=== PATIENT | female | born 1965 ===

== ENCOUNTER 2018-04-25 01:47 | Emergency (ER) | payer MEDICAID ==
[2018-04-25 02:12] VITALS: BP 117/83; PULSE 84; RESP 17; TEMP 98.6; O2SAT 96
--- NOTE | 2018-04-25 03:25 | ED PDOC ---
HPI: Abdomen Time Seen by Provider: 04/25/18 02:34 Chief Complaint (Nursing): GI Problem Chief Complaint (Provider): GI Problem History Per: Patient History/Exam Limitations: no limitations Onset/Duration Of Symptoms: Days (x1) Current Symptoms Are (Timing): Still Present Additional Complaint(s): 52 y/o female with no significant pmhx, who presents to the ED for evaluation of vomiting and diarrhea x1 day. Patient reports 1 episode of non- bilious, non-bloody vomiting, and 5 episodes of loose, watery, non-bloody diarrhea. Denies fever, cough, shortness of breath, and chest pain. Patient also reports that she and her coworker ate something and they both developed the same symptoms. PMD: [facility] Past Medical History Reviewed: Historical Data, Nursing Documentation, Vital Signs Vital Signs: Last Vital Signs Temp 98.6 F 04/25/18 02:01 Pulse 84 04/25/18 02:01 Resp 17 04/25/18 02:01 BP 117/83 04/25/18 02:01 Pulse Ox 96 04/25/18 03:37 - Medical History PMH: No Chronic Diseases - Surgical History Surgical History: No Surg Hx - Family History Family History: States: Unknown Family Hx - Social History Current smoker - smoking cessation education provided: No Alcohol: None Drugs: Denies - Immunization History Hx Tetanus Toxoid Vaccination: No Hx Influenza Vaccination: No Hx Pneumococcal Vaccination: No - Home Medications Home Medications: Ambulatory Orders Medication Instructions Recorded Ibuprofen [Motrin] 600 mg PO TID #12 tab 05/18/14 Prednisone 1 tab PO DAILY #4 tab 05/18/14 Dicyclomine [Bentyl] 20 mg PO Q12 PRN #20 tab 04/25/18 Ondansetron ODT [Zofran ODT] 4 mg PO Q6 PRN #8 odt 04/25/18 - Allergies Allergies/Adverse Reactions: Allergies Allergy/AdvReac Type Severity Reaction Status Date / Time No Known Allergies Allergy Verified 05/18/14 18:21 Review of Systems Constitutional: Negative for: Fever Cardiovascular: Negative for: Chest Pain Respiratory: Negative for: Cough, Shortness of Breath Gastrointestinal: Positive for: Vomiting, Diarrhea. Negative for: Hematochezia , Hematemesis Physical Exam - Reviewed Nursing Documentation Reviewed: Yes Vital Signs Reviewed: Yes - Physical Exam Appears: Positive for: Non-toxic, No Acute Distress Head Exam: Positive for: ATRAUMATIC, NORMAL INSPECTION, NORMOCEPHALIC Skin: Positive for: Normal Color, Warm, Dry. Negative for: Rash Eye Exam: Positive for: EOMI, Normal appearance, PERRL Neck: Positive for: Normal, Painless ROM, Supple Cardiovascular/Chest: Positive for: Regular Rate, Rhythm. Negative for: Murmur Respiratory: Positive for: Normal Breath Sounds. Negative for: Respiratory Distress Gastrointestinal/Abdominal: Positive for: Normal Exam, Soft. Negative for: Tenderness Back: Positive for: Normal Inspection. Negative for: L CVA Tenderness, R CVA Tenderness, Vertebral Tenderness Extremity: Positive for: Normal ROM. Negative for: Pedal Edema, Deformity Neurologic/Psych: Positive for: Alert, Oriented. Negative for: Motor/Sensory Deficits - ECG O2 Sat by Pulse Oximetry: 96 (RA) Pulse Ox Interpretation: Normal Medical Decision Making Medical Decision Making: Initial Impression: 52 y/o female with acute gastroenteritis Initial Plan: --Bentyl 20mg PO --Zofran 4mg PO --Reevaluation 4AM pt reports marked improvement in symptoms and is stable upon discharge DX AGE RX Bentyl/zofran Scribe Attestation: Documented by Tae Espinosa, acting as a scribe for Pranav Aviles MD. Provider Scribe Attestation: All medical record entries made by the Scribe were at my direction and personally dictated by me. I have reviewed the chart and agree that the record accurately reflects my personal performance of the history, physical exam, medical decision making, and the department course for this patient. I have also personally directed, reviewed, and agree with the discharge instructions and disposition. Disposition - Clinical Impression Clinical Impression: Gastroenteritis - Disposition Disposition: Routine/Home Disposition Time: 04:00 Condition: STABLE Prescriptions: Dicyclomine [Bentyl] 20 mg PO Q12 PRN #20 tab PRN Reason: abdominal pain/diarrhea Ondansetron ODT [Zofran ODT] 4 mg PO Q6 PRN #8 odt PRN Reason: Nausea/Vomiting Instructions: Viral Gastroenteritis Forms: [facility] (Divehi), [facility] ED School/Work Excuse
== END 2018-04-25 04:55 | disposition home or self-care (01) ==
LOC: H.ER 01:47
DX: K52.9 Noninfective gastroenteritis and colitis, unspecified (principal)

== ENCOUNTER 2018-06-01 01:58 | Emergency (ER) | payer MEDICAID ==
[2018-06-01 02:12] VITALS: BP 128/87; PULSE 84; RESP 18; O2SAT 98
[2018-06-01 03:09] LABS: BASO % 0.5 % (0.0-2.0); EOS # 0.1 K/uL (0.0-0.7); EOS % 1.1 % (0.0-4.0); HEMOGLOBIN 13.4 g/dL (12.0-16.0); LYMPH # 0.9 K/uL (1.0-4.3); LYMPH % 8.7 % (20.0-40.0); MEAN CELL VOLUME 91.4 fl (81.0-99.0); MEAN CORPUSCULAR HEMOGLOBIN 31.5 pg (27.0-31.0); MEAN CORPUSCULAR HGB CONC 34.4 g/dL (33.0-37.0); MONO # 0.2 K/uL (0.0-0.8); MONO % 1.8 % (0.0-10.0); NEUT # 8.9 K/uL (1.8-7.0); NEUT % 87.9 % (50.0-75.0); PLATELET COUNT 304 K/uL (130-400); RBC 4.25 Mil/uL (3.80-5.20); WHITE BLOOD COUNT 10.1 K/uL (4.8-10.8)
[2018-06-01 04:07] LABS: BLOOD UREA NITROGEN 10 mg/dl (7-17); GFR AFRICAN-AMERICAN > 60; GFR NON-AFRICAN AMERICAN > 60
[2018-06-01 04:08] LABS: CALCIUM 9.2 mg/dL (8.4-10.2)
[2018-06-01 04:09] LABS: ALB/GLOB RATIO 1.2 (1.0-2.1); ALT/SGPT 20 U/L (9-52); AST/SGOT 22 U/L (14-36)
--- NOTE | 2018-06-01 04:35 | ED PDOC ---
HPI: Skin/Bite Injury Time Seen by Provider: 06/01/18 02:19 Chief Complaint (Nursing): Abnormal Skin Integrity History Per: Patient Additional Complaint(s): 52 yo F c/o 1 month h/o itchiness to her entire body. Patient reports being seen in this ED prior and at [facility] for similar symptoms, however in the initial visit, patient states that she had a rash. Both visits she was rx prednisone, which she completed. 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 Otherwise patient reports (-) throat swelling, (-) tongue / lip swelling, (-) dyspnea, (-) cough, (-) wheezing, (-) abdominal pain, (-) nausea (-) vomiting. There has been no exposure to known allergens. Reports no new medications, new food or changes in soaps and lotions. Past Medical History Vital Signs: Last Vital Signs Temp 98 F 06/01/18 02:08 Pulse 84 06/01/18 02:08 Resp 18 06/01/18 02:08 BP 128/87 06/01/18 02:08 Pulse Ox 98 06/01/18 04:40 - Family History Family History: States: Unknown Family Hx - Immunization History Hx Tetanus Toxoid Vaccination: No Hx Influenza Vaccination: No Hx Pneumococcal Vaccination: No - Home Medications Home Medications: Ambulatory Orders Medication Instructions Recorded Nitrofurantoin Macrocrystals 1 cap PO BID #14 cap 05/19/18 [Macrobid] Prednisone [Deltasone] 20 mg PO DAILY #5 tablet 05/26/18 Cetirizine HCl [Zyrtec] 10 mg PO DAILY #30 capsule 06/01/18 - Allergies Allergies/Adverse Reactions: Allergies Allergy/AdvReac Type Severity Reaction Status Date / Time No Known Allergies Allergy Verified 06/01/18 02:12 Review of Systems Constitutional: Negative for: Fever, Malaise Cardiovascular: Negative for: Chest Pain, Palpitations Respiratory: Negative for: Cough, Shortness of Breath Gastrointestinal: Negative for: Vomiting, Abdominal Pain Genitourinary Female: Negative for: Dysuria, Frequency Skin: Positive for: Rash, Other (itchiness to her body) Physical Exam - Physical Exam Appears: Positive for: Well, Non-toxic, No Acute Distress Head Exam: Positive for: ATRAUMATIC, NORMAL INSPECTION, NORMOCEPHALIC Skin: Positive for: Normal Color, Warm, Dry. Negative for: Rash, Jaundice Eye Exam: Positive for: Normal appearance, EOMI, PERRL. Negative for: Scleral icterus ENT: Positive for: Normal ENT Inspection Neck: Positive for: Normal, Painless ROM, Supple Cardiovascular/Chest: Positive for: Regular Rate, Rhythm Respiratory: Positive for: CNT, Normal Breath Sounds Gastrointestinal/Abdominal: Positive for: Normal Exam, Soft. Negative for: Tenderness, Mass Back: Positive for: Normal Inspection Extremity: Positive for: Normal ROM. Negative for: Tenderness, Swelling Neurologic/Psych: Positive for: Alert, rn clinical quality II-XII, Oriented (x3). Negative for : Motor/Sensory Deficits - Laboratory Results Result Diagrams: 06/01/18 03:00 06/01/18 03:00 - ECG O2 Sat by Pulse Oximetry: 98 Medical Decision Making Medical Decision Making: CBC, CMP, Udip ordered. Patient given vistaril 25 mg PO. Labs reviewed and wnl. Udip (-). On re-evaluation, patient reports continued itching. On exam, patient remains AAOx3, in no acute distress. Diagnostic results d/w the patient in great detail. Based on history, exam and diagnostic results, plan will be for outpatient follow up. Patient instructed to follow-up with referral provided in 1-2 days without fail. Advised to take medication as prescribed. Return to the emergency room at any time for any new or worsening symptoms. Patient states she fully agrees with and understands discharge instructions. States that she agrees with the plan and disposition. Verbalized and repeated discharge instructions and plan. I have given the patient opportunity to ask any additional questions. Disposition - Clinical Impression Clinical Impression: Pruritus - Patient ED Disposition Is Patient to be Admitted: No Counseled Patient/Family Regarding: Studies Performed, Diagnosis, Need For Followup, Rx Given - Disposition Referrals: Navarro Juarez MD [Staff Provider] - Disposition: Routine/Home Disposition Time: 04:30 Condition: STABLE Additional Instructions: Thank you for letting us take care of you today. You were treated for pruritus. The emergency medical care you received today was directed at your acute symptoms. If you were prescribed any medication, please fill it and take as directed. It may take several days for your symptoms to resolve. Return to the Emergency Department if your symptoms worsen, do not improve, or if you have any other problems. Please call one of the physicians/clinics you have been referred to that are listed on the Patient Visit Information form that is included in your discharge packet. Bring any paperwork you were given at discharge with you along with any medications you are taking to your follow up visit. Our treatment cannot replace ongoing medical care by a primary care provider (PCP) outside of the emergency department. Thank you for allowing the [facility] team to be part of your care today. Prescriptions: Cetirizine HCl [Zyrtec] 10 mg PO DAILY #30 capsule Instructions: Itchy Skin Forms: [facility] (Ethiopian) - [place] / CHART PICKER / Resident Statement MD/DO has reviewed & agrees with the documentation as recorded.
[2018-06-01 04:54] VITALS: TEMP 97.5
[2018-06-01 05:09] LABS: LYMPHOCYTE 6 % (20-50); MONOCYTE 3 % (0-10); NEUTROPHIL 90 % (42-75); PLATELET ESTIMATE NORMAL (NORMAL); REACTIVE LYMPHOCYTES 1 % (0-0); TOTAL CELLS COUNTED 100
[2018-06-01 05:10] LABS: ANISOCYTOSIS SLIGHT
[2018-06-01 05:11] LABS: ACANTHOCYTES MODERATE; LARGE PLATELETS PRESENT
== END 2018-06-01 04:54 | disposition home or self-care (01) ==
LOC: H.ER 01:58
DX: L29.9 Pruritus, unspecified (principal)
CPT/HCPCS: 80053; 85025; 99282; Q0177

== ENCOUNTER 2018-07-09 11:01 | Emergency (ER) | payer MEDICAID ==
[2018-07-09 11:18] VITALS: BMI 24.1
--- NOTE | 2018-07-09 12:19 | ED PDOC ---
HPI: CCC, URI, Sore Throat Time Seen by Provider: 07/09/18 12:12 Chief Complaint (Nursing): ENT Problem Chief Complaint (Provider): sore throat History Per: Patient Additional Complaint(s): 52-year-old female presents with irritation to throat status post drinking a cup of hot tea a few days ago. Patient states every time she swallows she feels irritation and burning sensation. Patient denies any fever, chills, nausea or vomiting. She is tolerating liquids and solids. No medications taken for pain relief. PMD: [facility] Past Medical History Reviewed: Historical Data, Nursing Documentation, Vital Signs - Medical History PMH: No Chronic Diseases - Surgical History Surgical History: - Family History Family History: States: No Known Family Hx - Living Arrangements Living Arrangements: With Family - Social History Current smoker - smoking cessation education provided: No Alcohol: None Drugs: Denies - Home Medications Home Medications: Ambulatory Orders Medication Instructions Recorded Nitrofurantoin Macrocrystals 1 cap PO BID #14 cap 05/19/18 [Macrobid] Prednisone [Deltasone] 20 mg PO DAILY #5 tablet 05/26/18 Cetirizine HCl [Zyrtec] 10 mg PO DAILY #30 capsule 06/01/18 - Allergies Allergies/Adverse Reactions: Allergies Allergy/AdvReac Type Severity Reaction Status Date / Time No Known Allergies Allergy Verified 07/09/18 11:18 Review of Systems ROS Statement: Except As Marked, All Systems Reviewed And Found Negative Constitutional: Negative for: Fever, Chills ENT: Positive for: Throat Pain (burning and irritation) Respiratory: Negative for: Cough Gastrointestinal: Negative for: Nausea, Vomiting Physical Exam - Reviewed Nursing Documentation Reviewed: Yes Vital Signs Reviewed: Yes - Physical Exam Appears: Positive for: Well, Non-toxic, No Acute Distress Skin: Positive for: Normal Color. Negative for: Rash Eye Exam: Positive for: Normal appearance ENT: Negative for: Pharyngeal Erythema, Tonsillar Exudate, Tonsillar Swelling Cardiovascular/Chest: Positive for: Regular Rate, Rhythm Respiratory: Positive for: Normal Breath Sounds Extremity: Positive for: Normal ROM Neurologic/Psych: Positive for: Alert, Oriented - ECG O2 Sat by Pulse Oximetry: 99 Pulse Ox Interpretation: Normal Medical Decision Making Medical Decision Makin52 year old with throat irritation. Throat exam is normal. Patient is afebrile, well appearing. Patient was instructed to take NSAIDs for pain and follow-up with ENT as needed, referral provided. Disposition - Clinical Impression Clinical Impression: Throat irritation - Patient ED Disposition Is Patient to be Admitted: No - Disposition Referrals: Enrrique Gutierrez MD [Staff Provider] - Disposition: Routine/Home Disposition Time: 12:37 Condition: STABLE Additional Instructions: Tylenol or advil for pain as needed. Follow up with ear, nose and throat specialist for any persistent symptoms. Instructions: Sore Throat in Adults Forms: [facility] (Frisian)
[2018-07-09 12:42] VITALS: BP 124/71; PULSE 67; RESP 16; TEMP 98; O2SAT 99
== END 2018-07-09 12:55 | disposition home or self-care (01) ==
LOC: H.ER 11:01
DX: J02.9 Acute pharyngitis, unspecified (principal)

== ENCOUNTER 2018-07-19 17:03 | Emergency (ER) | payer MEDICAID ==
[2018-07-19 17:04] VITALS: BMI 24.1
[2018-07-19 17:12] VITALS: BP 133/75; PULSE 82; RESP 18; TEMP 98.3; O2SAT 100
[2018-07-19] MEDS ORDERED: Sodium Chloride 0.9% 1,000 ML IV STA (17:28)
[2018-07-19] MEDS ORDERED: DiphenhydrAMINE 50 mg/ml Inj IVP STA (17:28)
--- NOTE | 2018-07-19 17:36 | ED PDOC ---
HPI: Headache Time Seen by Provider: 07/19/18 17:15 Chief Complaint (Nursing): Headache Chief Complaint (Provider): Headache History Per: Patient History/Exam Limitations: no limitations Onset/Duration Of Symptoms: Days Current Symptoms Are (Timing): Still Present Additional Complaint(s): 52 y/o female presents to the ED complaining of intractable vomiting and headache, onset 9 am. Patient believes vomiting may have occurred because she took Two Tylenol tablets on an empty stomach. Patient reports of having recently had a full workup for neurological headaches including MRIs and MRAs which had been negative. Denies hemoptysis, diarrhea, focal weakness, blurry vision, difficulty with speech and fever. PMD: [facility] in [place], [place] Past Medical History Reviewed: Historical Data, Nursing Documentation, Vital Signs Vital Signs: Last Vital Signs Temp 98.3 F 07/19/18 17:08 Pulse 82 07/19/18 17:08 Resp 18 07/19/18 17:08 BP 133/75 07/19/18 17:08 Pulse Ox 100 07/19/18 17:08 - Surgical History Surgical History: (x2) Other surgeries: Ectopic Pregnancies - Family History Family History: States: No Known Family Hx - Social History Current smoker - smoking cessation education provided: No Alcohol: None Drugs: Denies - Immunization History Hx Tetanus Toxoid Vaccination: No Hx Influenza Vaccination: No Hx Pneumococcal Vaccination: No - Home Medications Home Medications: Ambulatory Orders Medication Instructions Recorded Nitrofurantoin Macrocrystals 1 cap PO BID #14 cap 05/19/18 [Macrobid] Prednisone [Deltasone] 20 mg PO DAILY #5 tablet 05/26/18 Cetirizine HCl [Zyrtec] 10 mg PO DAILY #30 capsule 06/01/18 - Allergies Allergies/Adverse Reactions: Allergies Allergy/AdvReac Type Severity Reaction Status Date / Time No Known Allergies Allergy Verified 07/09/18 11:18 Review of Systems ROS Statement: Except As Marked, All Systems Reviewed And Found Negative Constitutional: Negative for: Fever Eyes: Negative for: Vision Change Gastrointestinal: Positive for: Vomiting (intractable). Negative for: Diarrhea Neurological: Positive for: Headache. Negative for: Weakness, Change in Speech Physical Exam - Reviewed Nursing Documentation Reviewed: Yes Vital Signs Reviewed: Yes - Physical Exam Appears: Positive for: In Acute Distress (Mild, painful) Head Exam: Positive for: ATRAUMATIC, NORMOCEPHALIC Skin: Positive for: Warm, Dry Eye Exam: Positive for: EOMI, PERRL. Negative for: Nystagmus, Conjunctival injection ENT: Positive for: Normal ENT Inspection, Other (Tachy Mucous Membranes) Neck: Positive for: Painless ROM, Supple Cardiovascular/Chest: Positive for: Regular Rate, Rhythm. Negative for: Murmur Respiratory: Positive for: Normal Breath Sounds. Negative for: Respiratory Distress Gastrointestinal/Abdominal: Positive for: Normal Exam, Soft, Tenderness (Mild epigastric Tenderness). Negative for: Mass, Distended, Guarding, Rebound Back: Positive for: Normal Inspection. Negative for: Decreased ROM Extremity: Positive for: Normal ROM. Negative for: Deformity Neurologic/Psych: Positive for: Alert, sales vendor II-XII (intact), Oriented (x3), Mood/ Affect (normal mood anxious affect), Gait (steady). Negative for: Motor/ Sensory Deficits, Aphasia, Facial Droop - Laboratory Results Result Diagrams: 07/19/18 17:50 07/19/18 17:50 - ECG O2 Sat by Pulse Oximetry: 100 (RA) Pulse Ox Interpretation: Normal Medical Decision Making Medical Decision Making: Time: 1731 Impression: Headache and Vomiting Differentials include but not limited to Migraine, gastritis, viral syndrome, dyspepsia, adverse medication reaction, dehydration and electrolyte abnormality Plan: -- CMP -- Lipase -- ED Urine -- ED Urine Dipstick -- CBC with differentials -- Benadryl 25 mg IVP -- Sodium Chloride IV 1000 mls/hr -- Reglan 10 mg IV -- IV Insertion Time: 1802 -- Patient refuses further care, evaluation or treatment in the ER. Patient informed of the reasons for the following and planned treatment, which patient understands, however still refuses. -- AMA was discussed with patient. Patient informed of the risk and benefits of treatment. Informed that the risk could include worsening of current conditions , undiagnosed conditions, disability or even . Patient understands the following risk and the benefits of treatment. Patient has the capacity to make decisions and still refuses treatment by RN, PA and ER MD. Patient encouraged to return to the ER at any time and to follow up with PMD. -- Patient left prior to signing AMA paperwork. Scribe Attestation: Documented by Padmaja Cain acting as a scribe for Dr. Caren Westbrook. Provider Scribe Attestation: All medical record entries made by the Scribe were at my direction and personally dictated by me. I have reviewed the chart and agree that the record accurately reflects my personal performance of the history, physical exam, medical decision making, and the department course for this patient. I have also personally directed, reviewed, and agree with the discharge instructions and disposition. Disposition - Clinical Impression Clinical Impression: Headache - Disposition Disposition: Against Medical Advice Disposition Time: 18:00 Condition: UNKNOWN Additional Instructions: RETURN TO ER IMMEDIATELY TO FINISH YOUR WORKUP AND TREATMENT Instructions: Leaving Against Medical Advice Forms: [facility] (Kiswahili)
[2018-07-19 17:58] LABS: BASO # 0.1 K/uL (0.0-0.2); BASO % 0.8 % (0.0-2.0); EOS % 0.5 % (0.0-4.0); HEMOGLOBIN 14.5 g/dL (12.0-16.0); LYMPH # 1.5 K/uL (1.0-4.3); MEAN CORPUSCULAR HEMOGLOBIN 31.5 pg (27.0-31.0); MEAN CORPUSCULAR HGB CONC 34.6 g/dL (33.0-37.0); MEAN PLATELET VOLUME 8.4 fl (7.2-11.7); MONO # 0.5 K/uL (0.0-0.8); MONO % 6.1 % (0.0-10.0); NEUT % 73.6 % (50.0-75.0); NRBC % 0.1 % (0.0-0.0); RBC 4.61 Mil/uL (3.80-5.20); RED CELL DISTRIBUTION WIDTH 12.6 % (11.5-14.5); WHITE BLOOD COUNT 8.1 K/uL (4.8-10.8)
[2018-07-19 18:08] LABS: ALB/GLOB RATIO 1.2 (1.0-2.1); ALBUMIN 4.6 g/dL (3.5-5.0); ALT/SGPT 44 U/L (9-52); AST/SGOT 37 U/L (14-36); BLOOD UREA NITROGEN 10 mg/dl (7-17); CALCIUM 10.1 mg/dL (8.4-10.2); GFR AFRICAN-AMERICAN > 60; GFR NON-AFRICAN AMERICAN > 60; LIPASE 91 U/L (23-300)
[2018-07-19 18:26] LABS: SQUAMOUS EPITHIAL 5 /hpf (0-5); URINE BACTERIA RARE (<OCC); URINE BILIRUBIN NEGATIVE (NEGATIVE); URINE BLOOD NEGATIVE (NEGATIVE); URINE CLARITY CLOUDY (Clear); URINE COLOR YELLOW (YELLOW); URINE GLUCOSE (UA) NEG (Normal); URINE LEUKOCYTE ESTERASE SMALL Leu/uL (Negative); URINE PROTEIN 30 mg/dL (NEGATIVE); URINE UROBILINOGEN 0.2-1.0 mg/dL (0.2-1.0)
== END 2018-07-19 18:15 | disposition left against medical advice (07) ==
LOC: H.ER 17:03
DX: R51 Headache (principal)
CPT/HCPCS: 80053; 81003; 81025; 83690; 85025; 87086; 96374; 99285; J1200; J2765; J7030